=== PATIENT | female | born 2000 | race Caucasian/White ===

== ENCOUNTER 2019-05-30 16:38 | Outpatient (CLI) | payer OTHER ==
[2019-05-30] MEDS ORDERED: RINGERS SOLUTION,LACTATED 1,000 ML IV PRN (16:57)
[2019-05-30] MEDS ORDERED: ONDANSETRON HCL INJ/PF 4 MG/2 ML SDV IV ONE (16:59)
[2019-05-30] MEDS ORDERED: ONDANSETRON HCL INJ/PF 4 MG/2 ML SDV ONE (17:00)
[2019-05-30 17:19] LABS: APPEARANCE,URINE CLOUDY; BILIRUBIN,URINE NEGATIVE (NEGATIVE); COLOR,URINE AMBER; GLUCOSE, URINE NEGATIVE (NEGATIVE); KETONES,URINE 20 mg/dL (NEGATIVE); LEUKOCYTE ESTERASE,URINE SMALL (NEGATIVE); NITRITE,URINE NEGATIVE (NEGATIVE); PROTEIN,URINE 100 mg/dL (NEGATIVE); URINE SPECIFIC GRAVITY 1.026; UROBILINOGEN,URINE NEGATIVE mg/dL (<2.0)
[2019-05-30 17:34] LABS: URINE AMPHETAMINES SCREEN NEGATIVE; URINE BARBITURATES SCREEN NEGATIVE; URINE BENZODIAZEPINES SCREEN NEGATIVE; URINE COCAINE SCREEN NEGATIVE; URINE MARIJUANA (THC) SCREEN NEGATIVE; URINE METHADONE SCREEN NEGATIVE; URINE PHENCYCLIDINE SCREEN NEGATIVE
[2019-05-30] MEDS ORDERED: DEXTROSE 5%-LACTATED RINGERS 1,000 ML IV ONE (18:06)
--- NOTE | 2019-05-30 19:55 | Non Stress Test Report ---
Non Stress Test Datetime Report Generated by CPN: 05/30/2019 19:55 DEMOGRAPHIC EGA NST: 38.0 INDICATION Indication for Study (NST) Other: IUP @ 38.0 wks, Dehydration VITAL SIGNS Temperature - NST: 99.4 Pulse - NST: 118 RESP - NST: 17 NBPSYS NST: 102 NBPDIA NST: 55 MONITORING Time on Monitor: 05/30/2019 16:59 Time off Monitor: 05/30/2019 18:31 NST Duration: 92 NST INTERVENTIONS NST Interventions: PO Hydration; IV Fluids; Reposition Patient Physician Notified NST: Dr. Younger BABY A: [id number] BABY A Movement : Present Contraction Frequency : irregular FHR Baseline : 155 Accelerations : 15X15 Decelerations : Variable Variability : Moderate 6-25bpm NST Review: Meets Criteria for Reactive NST NST Review and Verified By : Funmi Cardoso RN NST Results: Reactive NST REPORT Report Trigger: Send Report
--- NOTE | 2019-05-30 20:25 | RADIOLOGY REPORT (SQ) ---
EXAM DESCRIPTION: US BIOPHYSICAL PROFILE WITHOUT NON STRESS TEST CLINICAL HISTORY: 18 years, Female, Non- reactive NST, clinical age 38 weeks 0 days. COMPARISON: None. TECHNIQUE: Transabdominal limited OB ultrasound was performed for a biophysical profile without nonstress test at 1841 hours on 05/30/2019. FINDINGS/IMPRESSION: There is a single intrauterine in a vertex presentation. A heart rate averages 153 bpm. The amniotic fluid volume is adequate. Normal breathing motion, tone and movement. The biophysical profile score is normal measuring 8 out of 8.
== END 2019-05-30 19:50 | disposition home or self-care (01) ==
LOC: LC 16:38
PROVIDERS: ATTEND Obstetrics & Gynecology
PROC: 4A1HXCZ Monitoring of Products of Conception, Cardiac Rate, External Approach (ICD-10-PCS; principal; 2019-05-30)
DX: O99.283 Endocrine, nutritional and metabolic diseases complicating pregnancy, third trimester (principal); Z3A.38 38 weeks gestation of pregnancy
CPT/HCPCS: 59025; 81005; 80307; 76819; J2405

== ENCOUNTER 2019-06-16 03:18 | Outpatient (CLI) | payer OTHER ==
[2019-06-16 16:07] LABS: APPEARANCE,URINE SLIGHTLY-CLOUDY; BILIRUBIN,URINE NEGATIVE (NEGATIVE); COLOR,URINE YELLOW; GLUCOSE, URINE NEGATIVE (NEGATIVE); KETONES,URINE NEGATIVE (NEGATIVE); LEUKOCYTE ESTERASE,URINE MODERATE (NEGATIVE); NITRITE,URINE NEGATIVE (NEGATIVE); PROTEIN,URINE NEGATIVE (NEGATIVE); URINE SPECIFIC GRAVITY 1.012; UROBILINOGEN,URINE NEGATIVE mg/dL (<2.0)
[2019-06-16 16:37] LABS: URINE AMPHETAMINES SCREEN NEGATIVE; URINE BARBITURATES SCREEN NEGATIVE; URINE BENZODIAZEPINES SCREEN NEGATIVE; URINE COCAINE SCREEN NEGATIVE; URINE MARIJUANA (THC) SCREEN NEGATIVE; URINE METHADONE SCREEN NEGATIVE; URINE PHENCYCLIDINE SCREEN NEGATIVE
== END 2019-06-16 17:23 | disposition home or self-care (01) ==
LOC: LC 03:18
PROVIDERS: ATTEND Obstetrics & Gynecology Gynecology
PROC: 4A1HXCZ Monitoring of Products of Conception, Cardiac Rate, External Approach (ICD-10-PCS; principal; 2019-06-16)
DX: O47.1 False labor at or after 37 completed weeks of gestation (principal); O48.0 Post-term pregnancy; Z3A.40 40 weeks gestation of pregnancy
CPT/HCPCS: 59025; 80307; 81005

== ENCOUNTER 2019-06-16 23:58 | Inpatient (IN) | payer OTHER ==
[2019-06-17 00:29] LABS: APPEARANCE,URINE CLEAR; BILIRUBIN,URINE NEGATIVE (NEGATIVE); COLOR,URINE YELLOW; GLUCOSE, URINE NEGATIVE (NEGATIVE); KETONES,URINE NEGATIVE (NEGATIVE); LEUKOCYTE ESTERASE,URINE NEGATIVE (NEGATIVE); NITRITE,URINE NEGATIVE (NEGATIVE); PROTEIN,URINE NEGATIVE (NEGATIVE); URINE SPECIFIC GRAVITY 1.006; UROBILINOGEN,URINE NEGATIVE mg/dL (<2.0)
[2019-06-17 00:48] LABS: URINE AMPHETAMINES SCREEN NEGATIVE; URINE BARBITURATES SCREEN NEGATIVE; URINE BENZODIAZEPINES SCREEN NEGATIVE; URINE COCAINE SCREEN NEGATIVE; URINE MARIJUANA (THC) SCREEN NEGATIVE; URINE METHADONE SCREEN NEGATIVE; URINE PHENCYCLIDINE SCREEN NEGATIVE
[2019-06-17] MEDS ORDERED: RINGERS SOLUTION,LACTATED 1,000 ML IV PRN (01:44)
[2019-06-17 02:22] LABS: ABSOLUTE LYMPHOCYTES (AUTO) 2.1 10^3/uL (0.5-4.7); ABSOLUTE MONOCYTES (AUTO) 0.8 10^3/uL (0.1-1.4); ABSOLUTE NEUT (AUTO) 7.7 10^3/uL (1.7-8.2); BASOPHILS % (AUTO) 0.3 % (0-2); EOSINOPHILS % (AUTO) 0.1 % (0-6); HEMATOCRIT 39.6 % (36.0-47.0); HEMOGLOBIN 13.8 g/dL (12.0-15.5); LYMPHOCYTES % (AUTO) 19.6 % (13-45); MEAN CORPUSCULAR HGB CONC 34.7 g/dL (32.0-36.0); MEAN CORPUSCULAR VOLUME 84 fl (80-97); MONOCYTES % (AUTO) 7.6 % (3-13); PLATELET COUNT 214 10^3/uL (150-450); RED BLOOD COUNT 4.74 10^6/uL (3.72-5.28); RED CELL DISTRIBUTION WIDTH 15.4 % (11.5-14.0); SEGMENTED NEUTROPHILS % (AUTO) 72.4 % (42-78); TOTAL CELLS COUNTED % (AUTO) 100 %; WHITE BLOOD COUNT 10.6 10^3/uL (4.0-10.5)
[2019-06-17] MEDS ORDERED: ONDANSETRON HCL INJ/PF 4 MG/2 ML SDV ONE (02:24)
[2019-06-17] MEDS ORDERED: FENTANYL CITRATE INJ/PF 100 MCG/2 ML AMPUL ONE (02:44)
[2019-06-17] MEDS ORDERED: EPHEDRINE SULFATE INJ 50 MG/1 ML AMPULE ONE (02:44)
[2019-06-17] MEDS ORDERED: PHENYLEPHRINE HCL INJ/PF 10 MG/1 ML SDV ONE (02:44)
[2019-06-17] MEDS ORDERED: FENTANYL/BUPIVACAINE/NS/PF 300 MCG/150 ML RTUINJ EPI ONE (02:44)
[2019-06-17] MEDS ORDERED: MISOPROSTOL 0.2 MG TABLET ONE (02:44)
[2019-06-17] MEDS ORDERED: OXYTOCIN 10 UNIT/ML VIAL ONE (02:44)
[2019-06-17] MEDS ORDERED: OXYTOCIN/NORMAL SALINE 20 UNIT/1,000 ML RTUINJ ONE (02:45)
[2019-06-17] MEDS ORDERED: BUPIVACAINE HCL 0.25 % INJ/PF (2.5 MG/1 ML) 30 ML VIAL ONE (02:45)
[2019-06-17] MEDS ORDERED: ONDANSETRON HCL INJ/PF 4 MG/2 ML SDV IV ONE (02:45)
[2019-06-17] MEDS ORDERED: LIDOCAINE 1% INJ-PF (10 MG/ML) 30 ML SDV ONE (02:45)
--- NOTE | 2019-06-17 05:53 | Admission Physical ---
Datetime Report Generated by CPN: 06/17/2019 05:53 CURRENT ADMISSION Chief Complaint: Uterine Contractions Indication for Induction: Not Applicable Admit Impression : Term, Intrauterine Admit Plan: Admit to Unit; Initiate Labor Protocol ALLERGIES Medication Allergies: No Medication Allergies: No Known Allergies (06/17/2019) Latex: Latex Allergies Food Allergies: none Environmental Allergies: none OBSTETRICAL HISTORY EDC: 06/13/2019 00:00 : 1 Para: 0 Term: 0 : 0 SAB: 0 IAB: 0 Ectopic: 0 Livin Cesareans: 0 VBACs: 0 Multiple Births: 0 Gestational Diabetes: No Rh Sensitization: No Incompetent Cervix: No GRETEL: No Infertility: No ART Treatment: No Uterine Anomaly: No IUGR: No Hx Previous C/S: No Macrosomia: No Hx Loss/Stillborn: No PIH: No Hx : No Placenta Previa/Abruption: No Depression/PP Depression: No PTL/PROM: No Post Hemorrhage: No Current Procedures: Ultrasound; NST Obstetrical History Comments: G1- current SEE RECORDS Alcohol: No Marijuana : No Cocaine: No Other Illicit Drugs: No Cigarettes: Never Smoker. 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, pt does not have an inhaler INFECTIOUS HISTORY Gonorrhea: No Chlamydia: No Tuberculosis: No Syphilis: No Hepatitis: No HIV/AIDS Exposure: No Rash or Viral Illness: No HPV: No PHYSICAL EXAM General: Normal HEENT: Normal Neurologic: Normal Thyroid: Normal Heart: Normal Lungs: Normal Breast: Deferred Back: Normal Abdomen: Normal Genitourinary Exam: Normal Extremities: Normal DTRs: Normal Pelvic Type: Adequate FETUS A EGA: 40.4 PLANS FOR LABOR AND DELIVERY Labor and Delivery: Plan Pain Management: None Feeding Preference: Breast Benefit of Breast Feed Discussed: Yes Circumcision: N/A INFORMED CONSENT Signature: with User ID: [email or web address]
[2019-06-17] MEDS ORDERED: BENZOCAINE/MENTHOL AEROSOL SPRAY 56 ML TOP PRN (09:48)
[2019-06-17] MEDS ORDERED: ACETAMINOPHEN WITH CODEINE #3 TABLET PO PRN (09:48)
[2019-06-17] MEDS ORDERED: DIPH/PERTUSS(ACELL)/TETANUS VAC/PF 0.5 ML SYR (>=10YO) IM PRN (09:48)
[2019-06-17] MEDS ORDERED: DIBUCAINE 1% OINTMENT 28 GM TP PRN (09:48)
[2019-06-17] MEDS ORDERED: OXYTOCIN/NORMAL SALINE 20 UNIT/1,000 ML RTUINJ IV PRN (09:48)
[2019-06-17] MEDS ORDERED: ZOLPIDEM TARTRATE 5 MG TABLET PO PRN (09:48)
[2019-06-17] MEDS ORDERED: MEASLES,MUMPS&RUBELLA VACC/PF 0.5 ML VIAL SUBCUT PRN (09:48)
--- NOTE | 2019-06-17 10:47 | Delivery Summary ---
Del Sum A-C Datetime Report Generated by CPN: 06/17/2019 10:47 DELIVERY PERSONNEL DELIVERY PERSONNEL: [id number] Delivery Doctor:: Justine Sebastian CNM Labor and Delivery Nurse:: Steph Worley RNsupervisor self service store Nurse:: Claire Benjamin RN Nursery Nurse:: Savannah Garcia RN Nursery Nurse:: Savannah Marques RN MATERNAL INFORMATION Delivery Anesthesia: None Medications After Delivery: Pitocin Bolus-Please Comment; Pitocin Drip 20 Units/1000ml NSS; Cytotec 400mcg Per Rectum/Vagina Meds After Delivery Comment: 20 Units Pitocin/1000ml NS Delivery QBL: 401 Maternal Complications: None Provider Comments: of [facility], delivered JENNIFER w/ compound presentation of the posterior arm, which i delivered first. Baby placed on pts abdoman, vigorous and crying. Cord clamped and cut after one minute. Cord blood collected. Placenta S/C/I, IV Pitocin infusing and 200 mcg SL Cytotec given for vaginal trickle. Rt labial lac repaired. Pt tolerated well. Mother and baby left in stable condition, skin to skin, she plans to breastfeed. Apgars 9,9. QBl pending. Attending MD is Dr Armstrong. LABOR SUMMARY EDC: 06/13/2019 00:00 No. Babies in Womb: 1 Attempted: No Labor Anesthesia: Epidural LABOR INFORMATION Reason for Induction: Not Applicable Onset of Labor: 06/17/2019 00:09 Complete Dilatation: 06/17/2019 09:01 Oxytocin: N/A Group B Beta Strep: negative Antibiotics # of Doses: 0 Antibiotics Time of Last Dose: n/a Steroids Given: None Reason Steroids Not Administered: Not Applicable MEMBRANES Membranes Rupture Method: Artificial Rupture of Membranes: 06/17/2019 05:59 Length of Rupture (hr): 3.40 Amniotic Fluid Color: Clear Amniotic Fluid Amount: Moderate Amniotic Fluid Odor: Normal STAGES OF LABOR Stage 1 hr: 8 Stage 1 min: 52 Stage 2 hr: 0 Stage 2 min: 22 Stage 3 hr: 0 Stage 3 min: 4 Total Time in Labor hr: 9 Total Time in Labor min: 18 VAGINAL DELIVERY Episiotomy: None Laceration Repair: Yes Laceration Repair Note: Rt labial laceration repaired using 3.0 Vicryl on SH needle and 1% lidocaine to numb the area. Sponge Count Correct: Yes Sharps Count Correct: Yes BABY A INFORMATION Delivery Date/Time: 06/17/2019 09:23 Method of Delivery: Vaginal Nurse Controlled Delivery: No Born in Route : No : N/A Forceps: N/A Vacuum Extraction: N/A Shoulder Dystocia : No PRESENTATION/POSITION BABY A Presentation: Cephalic Cephalic Presentation: Vertex Vertex Position: Right Occipital Anterior Breech Presentation: N/A PLACENTA INFORMATION BABY A Placenta Delivery Time : 06/17/2019 09:27 Placenta Method of Delivery: Spontaneous Placenta Status: Delivered SCORES BABY A Heart Rate 1 min: >100 bpm Resp Effort 1 min: Good Cry Reflex Irritability 1 min: Cough or Sneeze or Pulls Away Muscle Tone 1 min: Active Motion Color 1 min: Body [place], Extremities Blue Resuscitation Effort 1 min: Tactile Stimulation SCORE 1 MIN: 9 Heart Rate 5 min: >100 bpm Resp Effort 5 min: Good Cry Reflex Irritability 5 min: Cough or Sneeze or Pulls Away Muscle Tone 5 min: Active Motion Color 5 min: Body [place], Extremities Blue Resuscitation Effort 5 min: Tactile Stimulation SCORE 5 MIN: 9 INFANT INFORMATION BABY A Gestational Age at Delivery: 40.4 Gestational Status: Full Term- 39- 40.6 Weeks Outcome : Liveborn Condition : Stable Sex: Female IDENTIFICATION BABY A Infant Verification Date/Time: 06/17/2019 09:34 ID Band Number: [id number] Mother's Name Verified: Yes Infant RN Verifying : Marcos Benjamin, RN, A. Brunilda, RN WEIGHT/LENGTH BABY A Infant Birthweight (gm): 3912 Weight (lb): 8 Weight (oz): 10 Infant Length (in): 21.00 Infant Length (cm): 53.34 CORD INFORMATION BABY A No. Cord Vessels: 3 Nuchal Cord : N/A Cord Blood Taken: Yes-For Storage (Mom's Blood type +) Infant Suction: None ASSESSMENT BABY A Skin to Skin: Yes Skin to Skin Time (min): 70 BABY B INFORMATION : N/A SIGNATURES Assignment: Lynette Armstrong MD Signature: with User ID: [email or web address] : with User ID: [email or web address]
--- NOTE | 2019-06-17 13:03 | Warning Signs in Babies ---
VOD Warning Signs Datetime Report Generated by [facility]: 06/17/2019 13:03 VOD#608 -Warning Signs in Babies: Viewed with Parent(s)/Family (05/30/2019 16:59:Steph Worley RN)
[2019-06-17] MEDS: IBUPROFEN 800 MG TABLET PO SCH ×3 (14:44→21:46)
[2019-06-17] MEDS: DOCUSATE SODIUM 100 MG CAPSULE PO SCH ×2 (16:15→18:15)
[2019-06-17] MEDS: PRENATAL VITAMIN W DHA CAPSULE PO SCH (16:15)
[2019-06-17] MEDS: FERROUS SULFATE 325 MG TABLET PO SCH (16:15)
[2019-06-17] MEDS: SENNOSIDES/DOCUSATE 8.6-50 MG 1 EACH TABLET PO SCH (16:16)
[2019-06-18] MEDS: IBUPROFEN 800 MG TABLET PO SCH ×3 (05:08→23:19)
[2019-06-18 07:10] LABS: HEMATOCRIT 34.2 % (36.0-47.0); MEAN CORPUSCULAR HEMOGLOBIN 28.5 pg (27.0-33.4); MEAN CORPUSCULAR HGB CONC 33.8 g/dL (32.0-36.0); MEAN CORPUSCULAR VOLUME 84 fl (80-97); PLATELET COUNT 152 10^3/uL (150-450); RED BLOOD COUNT 4.06 10^6/uL (3.72-5.28); RED CELL DISTRIBUTION WIDTH 15.5 % (11.5-14.0); WHITE BLOOD COUNT 11.8 10^3/uL (4.0-10.5)
[2019-06-18 07:19] LABS: HEMOGLOBIN 11.6 g/dL (12.0-15.5)
[2019-06-18] MEDS: DOCUSATE SODIUM 100 MG CAPSULE PO SCH ×2 (09:34→18:00)
[2019-06-18] MEDS: SENNOSIDES/DOCUSATE 8.6-50 MG 1 EACH TABLET PO SCH (09:34)
[2019-06-18] MEDS: PRENATAL VITAMIN W DHA CAPSULE PO SCH (09:34)
[2019-06-18] MEDS: FERROUS SULFATE 325 MG TABLET PO SCH (09:34)
--- NOTE | 2019-06-18 11:21 | PDOC PROGRESS REPORT ---
Subjective-OB Progress Note for:: 06/18/19 Subjective: Pt doing well, no concerns. She reports light bleeding reg diet and voiding without difficulty. Physical Exam (OB) Vital Signs: Temp Pulse Resp BP Pulse Ox 97.3 F 70 18 121/65 100 06/18/19 08:00 06/18/19 08:00 06/18/19 08:00 06/18/19 08:00 06/18/19 08:00 Intake & Output 06/17/19 06/18/19 06/19/19 06:59 06:59 06:59 Intake Total 400 Balance 400 Weight 96.8 kg - Lochia Lochia Amount: Scant < 10 ml Lochia Color: Rubra/Red - Abdomen Description: Tender, Soft Hernia Present: No Fundal Description: Firm Fundal Height: u/u - u/2 Objective-Diagnostic Laboratory: 06/18/19 06:39 06/18/19 06:39 WBC 11.8 H RBC 4.06 Hgb 11.6 L D Hct 34.2 L MCV 84 MCH 28.5 MCHC 33.8 RDW 15.5 H Plt Count 152 Assessment and Plan(PN) - Assessment and Plan (1) Obstetrical laceration, first degree Is this a current diagnosis for this admission?: Yes (2) Vaginal abnormality in Is this a current diagnosis for this admission?: Yes - Time Spent with Patient Time with patient: Less than 15 minutes Medications reviewed and adjusted accordingly: Yes - Disposition Anticipated Discharge: Home Within: within 24 hours
[2019-06-19] MEDS: IBUPROFEN 800 MG TABLET PO SCH ×2 (06:33→13:44)
[2019-06-19] MEDS: DOCUSATE SODIUM 100 MG CAPSULE PO SCH (09:42)
[2019-06-19] MEDS: FERROUS SULFATE 325 MG TABLET PO SCH (09:42)
[2019-06-19] MEDS: PRENATAL VITAMIN W DHA CAPSULE PO SCH (09:42)
[2019-06-19] MEDS: SENNOSIDES/DOCUSATE 8.6-50 MG 1 EACH TABLET PO SCH (09:42)
--- NOTE | 2019-06-19 13:54 | PDOC DISCHARGE SUMMARY ---
Impression - Admit/DC Date/PCP Admission Date/Primary Care Provider: 06/17/19 01:47 MITCH JENKINS CNM Discharge Date: 06/19/19 - Discharge Diagnosis (1) Normal vaginal delivery Is this a current diagnosis for this admission?: Yes (2) Obstetrical laceration, first degree Is this a current diagnosis for this admission?: Yes - Additional Information Discharge Diet: Regular Discharge Activity: Balance Activity w/Rest, Pelvic Rest Referrals: MITCH JENKINS CNM [Primary Care Provider] - Prescriptions: Ibuprofen [Motrin 800 mg Tablet] 800 mg PO Q8HP PRN #60 tablet PRN Reason: Home Medications: Vit,Calc76/Iron/Folic [Prenatabs Rx Tablet] 1 tab PO DAILY 05/30/19 Ibuprofen [Motrin 800 mg Tablet] 800 mg PO Q8HP PRN #60 tablet 06/19/19 HPI Gestational Age: 40+4 Reason(s) for Admission: Onset of Labor Procedures: NST Intrapartum Procedure(s): Spontaneous Vaginal Delivery Complication(s): Laceration-Labial Results Laboratory Results: WBC 11.8 10^3/uL (4.0-10.5) H 06/18/19 06:39 RBC 4.06 10^6/uL (3.72-5.28) 06/18/19 06:39 Hgb 11.6 g/dL (12.0-15.5) L D 06/18/19 06:39 Hct 34.2 % (36.0-47.0) L 06/18/19 06:39 MCV 84 fl (80-97) 06/18/19 06:39 MCH 28.5 pg (27.0-33.4) 06/18/19 06:39 MCHC 33.8 g/dL (32.0-36.0) 06/18/19 06:39 RDW 15.5 % (11.5-14.0) H 06/18/19 06:39 Plt Count 152 10^3/uL (150-450) 06/18/19 06:39 Lymph % (Auto) 19.6 % (13-45) 06/17/19 02:10 [place] % (Auto) 7.6 % (3-13) 06/17/19 02:10 Eos % (Auto) 0.1 % (0-6) 06/17/19 02:10 Baso % (Auto) 0.3 % (0-2) 06/17/19 02:10 Absolute Neuts (auto) 7.7 10^3/uL (1.7-8.2) 06/17/19 02:10 Absolute Lymphs (auto) 2.1 10^3/uL (0.5-4.7) 06/17/19 02:10 Absolute Monos (auto) 0.8 10^3/uL (0.1-1.4) 06/17/19 02:10 Absolute Eos (auto) 0.0 10^3/uL (0.0-0.6) 06/17/19 02:10 Absolute Basos (auto) 0.0 10^3/uL (0.0-0.2) 06/17/19 02:10 Seg Neutrophils % 72.4 % (42-78) 06/17/19 02:10 Urine Color YELLOW 06/17/19 00:08 Urine Appearance CLEAR 06/17/19 00:08 Urine pH 7.0 (5.0-9.0) 06/17/19 00:08 Ur Specific [place] 1.006 06/17/19 00:08 Urine Protein NEGATIVE mg/dL (NEGATIVE) 06/17/19 00:08 Urine Glucose (UA) NEGATIVE mg/dL (NEGATIVE) 06/17/19 00:08 Urine Ketones NEGATIVE mg/dL (NEGATIVE) 06/17/19 00:08 Urine Blood NEGATIVE (NEGATIVE) 06/17/19 00:08 Urine Nitrite NEGATIVE (NEGATIVE) 06/17/19 00:08 Urine Bilirubin NEGATIVE (NEGATIVE) 06/17/19 00:08 Urine Urobilinogen NEGATIVE mg/dL (<2.0) 06/17/19 00:08 Ur Leukocyte Esterase NEGATIVE (NEGATIVE) 06/17/19 00:08 Urine Ascorbic Acid 20 (NEGATIVE) H 06/17/19 00:08 Membranes Rupture NEGATIVE (NEGATIVE) 06/17/19 00:15 Urine Opiates Screen NEGATIVE 06/17/19 00:08 Urine Methadone Screen NEGATIVE 06/17/19 00:08 Ur Barbiturates Screen NEGATIVE 06/17/19 00:08 Ur Phencyclidine Scrn NEGATIVE 06/17/19 00:08 Ur Amphetamines Screen NEGATIVE 06/17/19 00:08 U Benzodiazepines Scrn NEGATIVE 06/17/19 00:08 Urine Cocaine Screen NEGATIVE 06/17/19 00:08 U Marijuana (THC) Screen NEGATIVE 06/17/19 00:08 RPR NONREACTIVE (NONREACTIVE) 06/17/19 02:10 Blood Type A POSITIVE 06/17/19 02:10 Antibody Screen NEGATIVE 06/17/19 02:10 Plan Plan of Treatment: follow up in 4 weeks at [facility] for post check
[2019-06-19 14:17] VITALS: BP 121/65
== END 2019-06-19 15:00 | disposition home or self-care (01) | DRG 807 ==
LOC: LC 23:58 → LR 06-17 01:47 → 2S 06-17 13:30
PROVIDERS: ADMIT Obstetrics & Gynecology Gynecology; ATTEND Student in an Organized Health Care Education/Training Program
PROC: 10E0XZZ Delivery of Products of Conception, External Approach (ICD-10-PCS; principal; 2019-06-17)
PROC: 0HQ9XZZ Repair Perineum Skin, External Approach (ICD-10-PCS; 2019-06-17)
DX: O32.6XX0 Maternal care for compound presentation, not applicable or unspecified (principal); Z37.0 Single live birth; O70.0 First degree perineal laceration during delivery; Z3A.40 40 weeks gestation of pregnancy
CPT/HCPCS: 36415; 80307; 81005; 84112; 85025; 85027; 86592; 86850; 86900; 86901; 94760; J2370; J2405; J2590; J3010; J3490